=== PATIENT | male | born 1980 | race Caucasian/White ===

== ENCOUNTER 2017-11-16 18:34 | Inpatient (IN) | payer OTHER ==
[2017-11-16 21:50] VITALS: BMI 26.5
[2017-11-16] MEDS ORDERED: MELATONIN 5 MG TABLETS PO PRN (22:00)
[2017-11-16] MEDS ORDERED: P-EPHED 60MG/TRIPROLIDI 2.5MG TABLET PO PRN (22:04)
[2017-11-16] MEDS ORDERED: LOPERAMIDE HCL 2 MG CAPSULE PO PRN (22:04)
[2017-11-16] MEDS ORDERED: MAGNESIUM CITRATE 300 ML BOTTLE PO PRN (22:04)
[2017-11-16] MEDS ORDERED: MAG HYDROX/AL HYDROX/SIMETH 30 ML UNIT-DOSE CUP PO PRN (22:04)
[2017-11-16] MEDS ORDERED: MENTHOL/PHENOL 1 EACH UD MM PRN (22:04)
[2017-11-16] MEDS ORDERED: METHADONE HCL 10 MG TABLET (FOR DETOX USE ONLY) PO ONE ×2 (22:04→23:00)
[2017-11-16] MEDS ORDERED: guaiFENesin/D-METHORPHAN HB 10 ML UNIT-DOSE CUPS PO PRN (22:04)
[2017-11-16] MEDS ORDERED: MAGNESIUM HYDROX 2400MG/30ML ORAL SUSPENSION 30 ML CUP PO PRN (22:04)
[2017-11-16] MEDS ORDERED: ACETAMINOPHEN 325 MG TABLET (FP) PO PRN (22:04)
[2017-11-16] MEDS ORDERED: ZOLPIDEM TARTRATE 5 MG TABLET PO ONE (22:09)
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
[2017-11-16] MEDS: diazePAM 5 MG TABLET PO PRN (23:23)
[2017-11-17 01:27] LABS: URINE APPEARANCE CLEAR; URINE BILIRUBIN NEGATIVE (<2.0 mg/dL); URINE BLOOD NEGATIVE (NEGATIVE); URINE COLOR STRAW; URINE GLUCOSE (UA) NEGATIVE (NEGATIVE); URINE KETONE NEGATIVE (NEGATIVE); URINE LEUK ESTERASE NEGATIVE (NEGATIVE); URINE NITRITE NEGATIVE (NEGATIVE); URINE PROTEIN NEGATIVE (NEGATIVE); URINE UROBILINOGEN NEGATIVE mg/dL (0.2-1.0)
[2017-11-17] MEDS: diazePAM 5 MG TABLET PO PRN ×4 (04:52→22:40)
[2017-11-17] MEDS: CYCLOBENZAPRINE HCL 10 MG TABLET (FP) PO PRN ×4 (04:52→22:40)
[2017-11-17] MEDS: GABAPENTIN 400 MG CAPSULE (FP) PO SCH ×3 (05:05→22:40)
[2017-11-17] MEDS ORDERED: METHADONE HCL 10 MG TABLET (FOR DETOX USE ONLY) PO ONE (10:00)
--- NOTE | 2017-11-17 10:38 | EKG ---
Test Reason : Blood Pressure : / mmHG Vent. Rate : 098 BPM Atrial Rate : 098 BPM P-R Int : 152 ms QRS Dur : 088 ms QT Int : 350 ms P-R-T Axes : 068 -22 037 degrees QTc Int : 446 ms NORMAL SINUS RHYTHM WITH SINUS ARRHYTHMIA NORMAL ECG NO PREVIOUS ECGS AVAILABLE Confirmed by JOSEPH GARCIA MD ([id number]) on 11/17/2017 10:37:59 AM Referred By: Confirmed By:JOSEPH GARCIA MD
[2017-11-17] MEDS: PRENATAL VITAMINS W/ FOLIC ACID TABLET (FP) PO SCH (10:55)
[2017-11-17] MEDS: cloNIDine HCL 0.1 MG TABLET PO PRN ×2 (10:55→22:39)
[2017-11-17] MEDS: IBUPROFEN 400 MG TABLET (FP) PO PRN ×2 (10:57→18:10)
[2017-11-17 11:15] LABS: HEMATOCRIT 39.5 % (35.4-49); HEMOGLOBIN 13.4 GM/dL (11.7-16.9); MCH 29.3 pg (25.7-33.7); MEAN CELL VOLUME 86.1 fl (80-96); MEAN PLT VOLUME 7.3 fl (7.5-11.1); PLATELET COUNT 399 K/MM3 (134-434); RBC 4.58 M/mm3 (4.00-5.60); RDW 12.8 % (11.9-15.9); WHITE BLOOD COUNT 9.2 K/mm3 (4.0-10.0)
[2017-11-17 11:25] LABS: ALBUMIN 3.6 g/dl (3.4-5.0); ANION GAP 6 (8-16); BILIRUBIN,TOTAL 0.7 mg/dL (0.2-1.0); BLOOD UREA NITROGEN 16 mg/dL (7-18); CHLORIDE 104 mmol/L (98-107); CO2 30 mmol/L (21-32); CREATININE 0.9 mg/dL (0.7-1.3); GLUCOSE,RANDOM 80 mg/dL (74-106); POTASSIUM 4.1 mmol/L (3.5-5.1); SGOT/AST 11 U/L (15-37); SGPT/ALT 23 U/L (12-78); SODIUM 140 mmol/L (136-145); TOT PROT 7.3 g/dl (6.4-8.2)
--- NOTE | 2017-11-17 11:53 | PN ---
BHS COWS - Scale Resting Pulse: 1= [place] 81-100 Sweatin= Chills/Flushing Restless Observation: 3= Extraneous Movement Pupil Size: 0= Normal to Room Light Bone or Joint Aches: 2= Severe Diffuse Aches Runny Nose/ Eye Tearin= Nasal Congestion GI Upset > 30mins: 2= Nausea/Diarrhea Tremor Observation of Outstretched Hands: 2= Slight Tremor Visible Yawning Observation: 1= 1-2x During Session Anxiety or Irritability: 2=Irritable/Anxious Goose Flesh Skin: 3=Piloerection COWS Score: 18 BHS Progress Note (SOAP) Subjective: Irritable, sleep interruption, abdominal discomfort and restlessness, low back pain, bilateral feet pain due to neuropathy Objective: 11/17/17 11:51 Vital Signs 11/17/17 11/17/17 06:00 10:00 Temperature 98.1 F 97 F L Pulse Rate 101 H 113 H Respiratory 18 20 Rate Blood Pressure 119/87 153/111 Laboratory Last Values WBC 9.2 K/mm3 (4.0-10.0) 11/17/17 08:00 RBC 4.58 M/mm3 (4.00-5.60) 11/17/17 08:00 Hgb 13.4 GM/dL (11.7-16.9) 11/17/17 08:00 Hct 39.5 % (35.4-49) 11/17/17 08:00 MCV 86.1 fl (80-96) 11/17/17 08:00 MCH 29.3 pg (25.7-33.7) 11/17/17 08:00 MCHC 34.0 g/dl (32.0-35.9) 11/17/17 08:00 RDW 12.8 % (11.9-15.9) 11/17/17 08:00 Plt Count 399 K/MM3 (134-434) 11/17/17 08:00 MPV 7.3 fl (7.5-11.1) L 11/17/17 08:00 Sodium 140 mmol/L (136-145) 11/17/17 08:00 Potassium 4.1 mmol/L (3.5-5.1) 11/17/17 08:00 Chloride 104 mmol/L (98-107) 11/17/17 08:00 Carbon Dioxide 30 mmol/L (21-32) 11/17/17 08:00 Anion Gap 6 (8-16) L 11/17/17 08:00 BUN 16 mg/dL (7-18) 11/17/17 08:00 Creatinine 0.9 mg/dL (0.7-1.3) 11/17/17 08:00 Creat Clearance w eGFR > 60 (>60) 11/17/17 08:00 Random Glucose 80 mg/dL (74-106) 11/17/17 08:00 Calcium 9.0 mg/dL (8.5-10.1) 11/17/17 08:00 Total Bilirubin 0.7 mg/dL (0.2-1.0) 11/17/17 08:00 AST 11 U/L (15-37) L 11/17/17 08:00 ALT 23 U/L (12-78) 11/17/17 08:00 Total Protein 7.3 g/dl (6.4-8.2) 11/17/17 08:00 Albumin 3.6 g/dl (3.4-5.0) 11/17/17 08:00 Urine Color Straw 11/16/17 23:53 Urine Appearance Clear 11/16/17 23:53 Urine pH 7.0 (5.0-8.0) 11/16/17 23:53 Ur Specific [place] 1.008 (1.001-1.035) 11/16/17 23:53 Urine Protein Negative (NEGATIVE) 11/16/17 23:53 Urine Glucose (UA) Negative (NEGATIVE) 11/16/17 23:53 Urine Ketones Negative (NEGATIVE) 11/16/17 23:53 Urine Blood Negative (NEGATIVE) 11/16/17 23:53 Urine Nitrite Negative (NEGATIVE) 11/16/17 23:53 Urine Bilirubin Negative (<2.0 mg/dL) 11/16/17 23:53 Urine Urobilinogen Negative mg/dL (0.2-1.0) 11/16/17 23:53 Ur Leukocyte Esterase Negative (NEGATIVE) 11/16/17 23:53 Labs noted Assessment: 11/17/17 11:51 Withdrawal sx Neuropathy Plan: Continue detox May wear sneakers
[2017-11-17 12:07] LABS: ALK PHOS 127 U/L (45-117)
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
[2017-11-17] MEDS: THIAMINE HCL 100 MG TABLET (FP) PO SCH (22:41)
[2017-11-18] MEDS: GABAPENTIN 400 MG CAPSULE (FP) PO SCH ×3 (05:59→22:25)
[2017-11-18] MEDS: cloNIDine HCL 0.1 MG TABLET PO PRN ×2 (06:00→22:23)
[2017-11-18] MEDS: diazePAM 5 MG TABLET PO PRN ×4 (06:00→22:26)
[2017-11-18] MEDS: CYCLOBENZAPRINE HCL 10 MG TABLET (FP) PO PRN ×3 (06:02→22:24)
[2017-11-18] MEDS ORDERED: METHADONE HCL 5 MG TABLET (FOR DETOX USE ONLY) PO ONE (10:00)
[2017-11-18] MEDS: PRENATAL VITAMINS W/ FOLIC ACID TABLET (FP) PO SCH (10:49)
[2017-11-18] MEDS: hydrOXYzine PAMOATE 50 MG CAPSULE (FP) PO PRN ×3 (10:49→22:25)
[2017-11-18] MEDS ORDERED: diphenhydrAMINE HCL 25 MG CAPSULE (FP) PO ONE (12:45)
--- NOTE | 2017-11-18 13:01 | PN ---
BHS COWS - Scale Resting Pulse: 1= [place] 81-100 Sweatin= Chills/Flushing Restless Observation: 1= Difficult to Sit Still Pupil Size: 1= Pupils >than Normal Bone or Joint Aches: 2= Severe Diffuse Aches Runny Nose/ Eye Tearin= Nasal Congestion GI Upset > 30mins: 1= Stomach Cramp Tremor Observation of Outstretched Hands: 2= Slight Tremor Visible Yawning Observation: 2= >3x During Session Anxiety or Irritability: 2=Irritable/Anxious Goose Flesh Skin: 0=Smooth Skin COWS Score: 14 BHS Progress Note (SOAP) Subjective: body ache joint pain sweat tremor restlessness anxiety Objective: 11/18/17 12:58 Vital Signs Temperature 96.6 F L 11/18/17 10:00 Pulse Rate 59 L 11/18/17 10:00 Respiratory Rate 18 11/18/17 10:00 Blood Pressure 127/103 11/18/17 10:00 O2 Sat by Pulse Oximetry (%) Laboratory Last Values WBC 9.2 K/mm3 (4.0-10.0) 11/17/17 08:00 RBC 4.58 M/mm3 (4.00-5.60) 11/17/17 08:00 Hgb 13.4 GM/dL (11.7-16.9) 11/17/17 08:00 Hct 39.5 % (35.4-49) 11/17/17 08:00 MCV 86.1 fl (80-96) 11/17/17 08:00 MCH 29.3 pg (25.7-33.7) 11/17/17 08:00 MCHC 34.0 g/dl (32.0-35.9) 11/17/17 08:00 RDW 12.8 % (11.9-15.9) 11/17/17 08:00 Plt Count 399 K/MM3 (134-434) 11/17/17 08:00 MPV 7.3 fl (7.5-11.1) L 11/17/17 08:00 Sodium 140 mmol/L (136-145) 11/17/17 08:00 Potassium 4.1 mmol/L (3.5-5.1) 11/17/17 08:00 Chloride 104 mmol/L (98-107) 11/17/17 08:00 Carbon Dioxide 30 mmol/L (21-32) 11/17/17 08:00 Anion Gap 6 (8-16) L 11/17/17 08:00 BUN 16 mg/dL (7-18) 11/17/17 08:00 Creatinine 0.9 mg/dL (0.7-1.3) 11/17/17 08:00 Creat Clearance w eGFR > 60 (>60) 11/17/17 08:00 Random Glucose 80 mg/dL (74-106) 11/17/17 08:00 Calcium 9.0 mg/dL (8.5-10.1) 11/17/17 08:00 Total Bilirubin 0.7 mg/dL (0.2-1.0) 11/17/17 08:00 AST 11 U/L (15-37) L 11/17/17 08:00 ALT 23 U/L (12-78) 11/17/17 08:00 Alkaline Phosphatase 127 U/L (45-117) H 11/17/17 08:00 Total Protein 7.3 g/dl (6.4-8.2) 11/17/17 08:00 Albumin 3.6 g/dl (3.4-5.0) 11/17/17 08:00 Urine Color Straw 11/16/17 23:53 Urine Appearance Clear 11/16/17 23:53 Urine pH 7.0 (5.0-8.0) 11/16/17 23:53 Ur Specific [place] 1.008 (1.001-1.035) 11/16/17 23:53 Urine Protein Negative (NEGATIVE) 11/16/17 23:53 Urine Glucose (UA) Negative (NEGATIVE) 11/16/17 23:53 Urine Ketones Negative (NEGATIVE) 11/16/17 23:53 Urine Blood Negative (NEGATIVE) 11/16/17 23:53 Urine Nitrite Negative (NEGATIVE) 11/16/17 23:53 Urine Bilirubin Negative (<2.0 mg/dL) 11/16/17 23:53 Urine Urobilinogen Negative mg/dL (0.2-1.0) 11/16/17 23:53 Ur Leukocyte Esterase Negative (NEGATIVE) 11/16/17 23:53 RPR Titer Nonreactive (NONREACTIVE) 11/17/17 08:00 lab noted Assessment: 11/18/17 12:58 withdrawal sx Plan: continue detox benadryl 25 mg x 1
--- NOTE | 2017-11-18 13:11 | PN ---
Psychiatric Progress Note Vital Signs: Vital Signs Period Temp Pulse Resp BP Sys/Scott Pulse Ox Last 24 Hr 96.6 F-98.1 F 59-114 18-20 112-139/76-105 Date of Session: 11/18/17 Chief Complaint:: Insomnia HPI: Patient is a 37 years old male with history od Opioid abuse admitted on 11/16/17 for inpatient detoxificatio Current Medications: Active Medications Generic Name Dose Route Start Last Admin Trade Name Freq PRN Reason Stop Dose Admin Acetaminophen 650 mg 11/16/17 22:04 11/18/17 10:49 Tylenol - PO 650 mg Q4H PRN Administration FEVER Al Hydroxide/Mg Hydroxide 30 ml 11/16/17 22:04 Mylanta Oral Suspension - PO Q6H PRN DYSPEPSIA Clonidine 0.1 mg 11/16/17 22:21 11/18/17 06:00 Catapres - PO 0.1 mg BID PRN Administration HYPERTENSION Cyclobenzaprine HCl 10 mg 11/16/17 22:20 11/18/17 10:49 Flexeril - PO 10 mg TID PRN Administration MUSCLE SPASMS Diazepam 10 mg 11/16/17 22:04 11/18/17 10:52 Valium - PO 11/19/17 22:03 10 mg Q4H PRN Administration WITHDRAWAL(CONT SUBST) Eucalyptus/Menthol/Phenol/Sorbitol 1 each 11/16/17 22:04 Cepastat Lozenge - MM Q4H PRN SORE THROAT Gabapentin 800 mg 11/17/17 06:00 11/18/17 05:59 Neurontin - PO 800 mg TID MARIE Administration Guaifenesin 10 ml 11/16/17 22:04 Robitussin Dm - PO Q6H PRN COUGH Hydroxyzine Pamoate 50 mg 11/16/17 22:04 11/18/17 10:49 Vistaril - PO 50 mg Q4H PRN Administration AGITATION Ibuprofen 400 mg 11/16/17 22:04 11/17/17 18:10 Motrin - PO 400 mg Q6H PRN Administration PAIN LEVEL 4-6 Loperamide HCl 4 mg 11/16/17 22:04 Imodium - PO Q6H PRN DIARRHEA Magnesium Citrate 300 ml 11/16/17 22:04 Citroma - PO Q48H PRN CONSTIPATION Magnesium Hydroxide 30 ml 11/16/17 22:04 Milk Of Magnesia - PO DAILY PRN CONSTIPATION Melatonin 5 mg 11/16/17 22:00 Melatonin PO HS PRN INSOMNIA Methadone HCl 5 mg 11/21/17 06:00 Dolophine - PO 11/21/17 06:01 ONCE@0600 ONE Methadone HCl 15 mg 11/19/17 10:00 Dolophine - PO 11/19/17 10:01 ONCE ONE Methadone HCl 10 mg 11/20/17 10:00 Dolophine - PO 11/20/17 10:01 ONCE ONE Multivit/Folic Acid/Iron 1 tab 11/17/17 10:00 11/18/17 10:49 Vitamins (Sjr) - PO 1 tab DAILY MARIE Administration Pseudoephedrine/Triprolidine 1 combo 11/16/17 22:04 Actifed - PO TID PRN NASAL CONGESTION Thiamine HCl 100 mg 11/17/17 22:00 11/17/17 22:41 Vitamin B1 - PO 100 mg HS MARIE Administration Zolpidem Tartrate 10 mg 11/18/17 13:07 Ambien - PO HS PRN INSOMNIA Medication(s) Change(s): Start Ambien 10 mg po HS prn for insomnia Current Side Effect: No Lab tests ordered: Yes Lab tests reviewed: Yes Provider note:: Patient reports experiencing difficulty to sleep. Told physician underwriter that he has been sleeping poorly since his admission to this facility. Requests to be ordered medication for sleep. Hypnotic as well as adverse-efffects of Ambien and other alternatives discussed with patient and he opted to try Ambien Total face to face time:: 15 Mental Status Exam - Mental Status Exam Alert and Oriented to: Time, Place, Person Cognitive Function: Fair Patient Appearance: Well Groomed Mood: Anxious Affect: Appropriate Patient Behavior: Cooperative Speech Pattern: Clear Voice Loudness: Normal Thought Process: Intact, Goal Oriented Thought Disorder: Not Present Hallucinations: Denies Suicidal Ideation: Denies Homicidal Ideation: Denies Insight/Judgement: Poor Sleep: Poorly Appetite: Good Gait/Station: Normal Psychiatric Treatment Plan - Problem List (1) Substance-induced anxiety disorder Current Visit: Yes (2) Substance-induced sleep disorder Current Visit: Yes (3) Opioid dependence with withdrawal Current Visit: Yes (4) Anemia Current Visit: Yes (5) Bone spur Current Visit: Yes (6) Lyme disease Current Visit: Yes (7) Neuropathy Current Visit: Yes Initial treatment plan: 1) Start Ambien 10 mg po HS prn for insomnia. 2) Continue inpatient detoxification
[2017-11-18] MEDS: IBUPROFEN 400 MG TABLET (FP) PO PRN (18:07)
[2017-11-18] MEDS ORDERED: ZOLPIDEM TARTRATE 5 MG TABLET PO PRN (22:00)
[2017-11-18] MEDS: THIAMINE HCL 100 MG TABLET (FP) PO SCH (22:25)
[2017-11-19] MEDS: diazePAM 5 MG TABLET PO PRN ×2 (02:26→10:52)
[2017-11-19] MEDS: IBUPROFEN 400 MG TABLET (FP) PO PRN ×2 (02:26→10:51)
[2017-11-19] MEDS: CYCLOBENZAPRINE HCL 10 MG TABLET (FP) PO PRN (05:39)
[2017-11-19] MEDS: hydrOXYzine PAMOATE 50 MG CAPSULE (FP) PO PRN (05:39)
[2017-11-19] MEDS: GABAPENTIN 400 MG CAPSULE (FP) PO SCH (05:40)
--- NOTE | 2017-11-19 08:26 | PN ---
Psychiatric Progress Note Vital Signs: Vital Signs Period Temp Pulse Resp BP Sys/Scott Pulse Ox Last 24 Hr 96.6 F-97.7 F 59-128 18-20 111-150/79-103 Date of Session: 11/19/17 Chief Complaint:: Insomnia HPI: Patient reports sleeping well after starting Ambien 10mg po qhs Current Medications: Active Medications Generic Name Dose Route Start Last Admin Trade Name Freq PRN Reason Stop Dose Admin Acetaminophen 650 mg 11/16/17 22:04 11/18/17 10:49 Tylenol - PO 650 mg Q4H PRN Administration FEVER Al Hydroxide/Mg Hydroxide 30 ml 11/16/17 22:04 Mylanta Oral Suspension - PO Q6H PRN DYSPEPSIA Clonidine 0.1 mg 11/16/17 22:21 11/18/17 22:23 Catapres - PO 0.1 mg BID PRN Administration HYPERTENSION Cyclobenzaprine HCl 10 mg 11/16/17 22:20 11/19/17 05:39 Flexeril - PO 10 mg TID PRN Administration MUSCLE SPASMS Diazepam 10 mg 11/16/17 22:04 11/19/17 02:26 Valium - PO 11/19/17 22:03 10 mg Q4H PRN Administration WITHDRAWAL(CONT SUBST) Eucalyptus/Menthol/Phenol/Sorbitol 1 each 11/16/17 22:04 Cepastat Lozenge - MM Q4H PRN SORE THROAT Gabapentin 800 mg 11/17/17 06:00 11/19/17 05:40 Neurontin - PO 800 mg TID MARIE Administration Guaifenesin 10 ml 11/16/17 22:04 Robitussin Dm - PO Q6H PRN COUGH Hydroxyzine Pamoate 50 mg 11/16/17 22:04 11/19/17 05:39 Vistaril - PO 50 mg Q4H PRN Administration AGITATION Ibuprofen 400 mg 11/16/17 22:04 11/19/17 02:26 Motrin - PO 400 mg Q6H PRN Administration PAIN LEVEL 4-6 Loperamide HCl 4 mg 11/16/17 22:04 Imodium - PO Q6H PRN DIARRHEA Magnesium Citrate 300 ml 11/16/17 22:04 Citroma - PO Q48H PRN CONSTIPATION Magnesium Hydroxide 30 ml 11/16/17 22:04 Milk Of Magnesia - PO DAILY PRN CONSTIPATION Melatonin 5 mg 11/16/17 22:00 Melatonin PO HS PRN INSOMNIA Methadone HCl 5 mg 11/21/17 06:00 Dolophine - PO 11/21/17 06:01 ONCE@0600 ONE Methadone HCl 15 mg 11/19/17 10:00 Dolophine - PO 11/19/17 10:01 ONCE ONE Methadone HCl 10 mg 11/20/17 10:00 Dolophine - PO 11/20/17 10:01 ONCE ONE Multivit/Folic Acid/Iron 1 tab 11/17/17 10:00 11/18/17 10:49 Vitamins (Sjr) - PO 1 tab DAILY MARIE Administration Pseudoephedrine/Triprolidine 1 combo 11/16/17 22:04 Actifed - PO TID PRN NASAL CONGESTION Thiamine HCl 100 mg 11/17/17 22:00 11/18/17 22:25 Vitamin B1 - PO 100 mg HS MARIE Administration Zolpidem Tartrate 10 mg 11/18/17 22:00 11/18/17 22:23 Ambien - PO 10 mg HS PRN Administration INSOMNIA Medication(s) Change(s): None Mental Status Exam - Mental Status Exam Alert and Oriented to: Person Cognitive Function: Fair Patient Appearance: Unkempt Mood: Sad Affect: Mood Congruent Patient Behavior: Sedated Speech Pattern: Delayed Voice Loudness: Mildly Soft/Quiet Thought Process: Circumstantial Thought Disorder: Being Controlled Hallucinations: Denies Suicidal Ideation: Denies Homicidal Ideation: Denies Insight/Judgement: Fair Sleep: Fair Appetite: Fair Muscle strength/Tone: Mild Hypotonicity Gait/Station: Shuffling Additional Comments: Ambien 10mg po qhs to continue Psychiatric Treatment Plan - Problem List (1) Opioid dependence with withdrawal Current Visit: Yes (2) Substance induced mood disorder Current Visit: Yes (3) Substance-induced anxiety disorder Current Visit: Yes (4) Substance-induced sleep disorder Current Visit: Yes Initial treatment plan: Ambien 10mg po qhs
[2017-11-19 09:59] VITALS: BP 149/101; PULSE 99; TEMP 96.6
[2017-11-19] MEDS ORDERED: METHADONE HCL 5 MG TABLET (FOR DETOX USE ONLY) PO ONE (10:00)
[2017-11-19] MEDS: PRENATAL VITAMINS W/ FOLIC ACID TABLET (FP) PO SCH (10:51)
[2017-11-19] MEDS: cloNIDine HCL 0.1 MG TABLET PO PRN (10:52)
--- NOTE | 2017-11-19 11:06 | PN ---
BHS Progress Note (SOAP) Subjective: ALERT,IRRITABLE,ANXIOUS,INTERRUPTED SLEEP,TREMOR,PAIN IN THE BODY AND BACK Objective: 11/19/17 11:05 Vital Signs Temperature 96.6 F L 11/19/17 09:58 Pulse Rate 99 H 11/19/17 09:58 Respiratory Rate 20 11/19/17 09:58 Blood Pressure 149/101 11/19/17 09:58 O2 Sat by Pulse Oximetry (%) Assessment: 11/19/17 11:05 WITHDRAWAL SYMPTOM Plan: CONTINUE DETOX
--- NOTE | 2017-11-19 11:10 | PN ---
S Progress Note Note: PATIENT DID NOT WANT TO COMPLETE TREATMENT STATED HE HAS TO GO TO [facility],SINED RELEASE AMYancy,SEEN BY COUNSELOR
--- NOTE | 2017-11-19 11:17 | DS ---
[facility] Detox Discharge Summary Admission Date: 11/16/17 Discharge Date: 11/19/17 - History Present History: Opioid Dependence Additional Comments: PATIENT DID NOT WANT TO COMPLETE TREATMENT,SIGNED RELEASE AMA,STATED HE HAS TO APPOINT TO GO TO [facility] FOR EVALUATION Pertinent Past History: NEUROPATHY LYMES DISEASE - Physical Exam Results Vital Signs: Vital Signs Temperature 96.6 F L 11/19/17 09:58 Pulse Rate 99 H 11/19/17 09:58 Respiratory Rate 20 11/19/17 09:58 Blood Pressure 149/101 11/19/17 09:58 O2 Sat by Pulse Oximetry (%) Pertinent Admission Physical Exam Findings: WITHDRAWAL SIGNS AND SYMPTOM - Medication Discharge Medications: Ambulatory Orders Cyclobenzaprine HCl [Flexeril -] 10 mg PO TID PRN 11/16/17 Gabapentin [Gabapentin] 800 mg PO TID 11/16/17 - Diagnosis (1) Opioid dependence with withdrawal Current Visit: Yes Status: Acute (2) Substance induced mood disorder Current Visit: Yes Status: Acute (3) Substance-induced anxiety disorder Current Visit: Yes Status: Acute (4) Substance-induced sleep disorder Current Visit: Yes Status: Acute (5) Chronic pain due to trauma Current Visit: Yes Status: Chronic (6) Lyme disease Current Visit: Yes Status: Chronic (7) Neuropathy Current Visit: Yes Status: Chronic - AMA Did Patient Leave Against Medical Advice: Yes
[2017-11-20] MEDS ORDERED: METHADONE HCL 5 MG TABLET (FOR DETOX USE ONLY) PO ONE (06:00)
[2017-11-20] MEDS ORDERED: METHADONE HCL 10 MG TABLET (FOR DETOX USE ONLY) PO ONE (10:00)
[2017-11-21] MEDS ORDERED: METHADONE HCL 5 MG TABLET (FOR DETOX USE ONLY) PO ONE (06:00)
== END 2017-11-19 12:00 | disposition left against medical advice (07) | DRG 770 ==
LOC: YASAS 18:34 → Y6N 21:55
PROVIDERS: ADMIT Internal Medicine; ATTEND Internal Medicine
PROC: HZ2ZZZZ Detoxification Services for Substance Abuse Treatment (ICD-10-PCS; principal; 2017-11-16)
DX: F11.23 Opioid dependence with withdrawal (principal); F19.24 Other psychoactive substance dependence with psychoactive substance-induced mood disorder; F19.282 Other psychoactive substance dependence with psychoactive substance-induced sleep disorder; F19.280 Other psychoactive substance dependence with psychoactive substance-induced anxiety disorder; G62.9 Polyneuropathy, unspecified; G89.21 Chronic pain due to trauma; A69.20 Lyme disease, unspecified; M62.838 Other muscle spasm
CPT/HCPCS: 36415; 80053; 81003; 85027; 86593; 93005; 93010; J0735